=== PATIENT | female | born 2005 | race Caucasian/White ===

== ENCOUNTER 2024-11-07 15:40 | Emergency (ER) | payer SELFPAY ==
[2024-11-07 15:43] VITALS: BP 134/58; PULSE 81; RESP 18; TEMP 36.6; O2SAT 100
--- NOTE | 2024-11-07 16:22 | ED_ITS ---
HPI - Skin/Abscess/Foreign Bdy General Chief complaint: Skin/Abscess/Foreign Body Stated complaint: tail bone cyst Time Seen by Provider: 11/07/24 16:22 Source: patient Mode of arrival: ambulatory Limitations: no limitations History of Present Illness HPI narrative: 19 years old white female came with painful lump at the tailbone started 4 days ago, gradually getting worse. She denies any fever, chills, nausea, vomiting or similar symptoms. Related Data Allergies Allergy/AdvReac Type Severity Reaction Status Date / Time No Known Allergies Allergy Verified 11/07/24 15:48 Review of Systems Review of Systems: All systems reviewed & are unremarkable except as noted in HPI and below Exam Narrative: General appearance: Well-developed, well-nourished Skin: Normal color, pilonidal abscess at the tailbone, red, tender, no discharge Head: Normocephalic, nontraumatic Eyes: Clear conjunctiva ENT: Oropharynx normal, ears normal, nose normal Neck: Supple, nontender Chest and respiratory: Airway patent, no respiratory distress, no accessory muscle use Heart: Regular rate/rhythm Abdomen: Soft, nontender, no organomegaly, quiet bowel sounds Vascular: Normal peripheral pulses, normal capillary refill. Musculoskeletal: Normal range of motion, nontender back Neurologic: Alert and oriented ?3, [employer] is normal as tested, no gross motor deficit Course Vital Signs Vital signs: Vital Signs Temperature 36.6 C 11/07/24 15:43 Pulse Rate 81 11/07/24 15:43 Respiratory Rate 18 11/07/24 15:43 Blood Pressure 134/58 L 11/07/24 15:43 Pulse Oximetry 100 11/07/24 15:43 Temperature 36.6 C 11/07/24 15:43 Pulse Rate 81 11/07/24 15:43 Respiratory Rate 18 11/07/24 15:43 Blood Pressure 134/58 L 11/07/24 15:43 Pulse Oximetry 100 11/07/24 15:43 Procedures Abscess I/D other: Date of Incision: 11/07/24 Time of Incision: 17:51 Sedation/analgesia: none Local Anesthetic: lidocaine 1% and with epi Amount of anesthesia used (mL): 3 Technique: incised with #11 blade Amount of fluid expressed (mL): 2 Irrigation: No Packing used?: iodoform I&D Results: Pus and Blood Complications: other (None) Discharge Plan Discharge Clinical Impression: Infected pilonidal cyst Patient Disposition: Home Condition: Stable Instructions: Antibiotic Form, Pilonidal Cyst (ED) Additional Instructions: Discharge instructions Remove packing in 48 hours Patient Language: Sinhala Prescriptions: New clindamycin HCl [Cleocin HCl] 300 mg capsule 300 mg PO Q6H 7 Days Qty: 28 0RF Follow-up/Referrals: PHYSICIAN NOT ON STAFF,NONSTAFF [Non-Staff] Mario Santana DO [Physician, General Surgery] - 11/10/24
[2024-11-07] MEDS: HYDROcodone/acetaminophen (*CRX) 5-325 MG TABLET 1 TAB PO (17:11)
[2024-11-07] MEDS: IBUPROFEN 600 MG TABLET PO (17:11)
== END 2024-11-07 18:11 | disposition home or self-care (01) ==
PROVIDERS: Emergency Provider Emergency Medicine
DX: L05.91 Pilonidal cyst without abscess (principal)
CPT/HCPCS: 10080; 87070; 87075; 99283; A9270; J2004